=== PATIENT | female | born 1990 | race Caucasian/White ===

== ENCOUNTER 2021-10-25 16:37 | Outpatient (CLI) | payer OTHER, SELFPAY | END 2021-10-25 16:38 | disposition home or self-care (01) | LOC: LKVREF 10-29 16:01 | PROVIDERS: PCP Registered Nurse; Visit Provider Registered Nurse | DX: R10.9 Unspecified abdominal pain (principal); R30.0 Dysuria | CPT/HCPCS: 87086 ==

== ENCOUNTER 2021-10-29 10:35 | Outpatient (CLI) | payer OTHER, SELFPAY | END 2021-10-29 10:36 | disposition home or self-care (01) | PROVIDERS: PCP Registered Nurse; Visit Provider Physician Assistant | DX: R10.2 Pelvic and perineal pain (principal) | CPT/HCPCS: 87086 ==

== ENCOUNTER 2021-10-29 11:14 | Outpatient (CLI) | payer OTHER, SELFPAY ==
[2021-10-29 23:12] LABS: Chlamydia DNA Amplified* NOT DETECTED (No Detected); GC DNA Amplified* NOT DETECTED (No Detected)
== END 2021-10-29 11:15 | disposition home or self-care (01) ==
PROVIDERS: PCP Registered Nurse; Visit Provider Physician Assistant
DX: R10.2 Pelvic and perineal pain (principal); Z12.4 Encounter for screening for malignant neoplasm of cervix
CPT/HCPCS: 87491; 87591; 87624

== ENCOUNTER 2021-10-30 07:18 | Outpatient (CLI) | payer OTHER, SELFPAY ==
--- NOTE | 2021-10-30 07:15 | CRLHL7_ITS ---
For Patients: As a result of the Century Cures Act, medical imaging exams and procedure reports are released immediately into your electronic medical record. You may view this report before your referring provider. If you have questions, please contact your health care provider. INDICATION: Pelvic pain TECHNIQUE: Ultrasound pelvis transabdominal and transvaginal for better assessment or to better visualize the endometrium. Real time sonographic images with Spectral and color Doppler imaging of the ovaries were obtained. COMPARISON: None FINDINGS: Uterus: 6.5 centimeter x 3.0 centimeter x 3.7 centimeter. Normal echotexture of the myometrium. No masses. Endometrium: Transvaginal imaging was performed to better evaluate the endometrium. 6 millimeters in thickness. No sign of endometrial mass or fluid. Right ovary: 5.6 centimeter x 3.4 centimeter x 3.5 centimeter. No ovarian or adnexal masses. 5.0 centimeter right ovarian cyst. Normal arterial and venous blood flow. Left ovary: 3.1 centimeter x 1.7 centimeter x 1.8 centimeter. No ovarian or adnexal masses. Normal arterial and venous blood flow. Cul-de-sac: No significant free fluid. IMPRESSION: 5.0 centimeter simple right ovarian cyst. No evidence for ovarian torsion. Dictated by Joaquin Serna MD @ 10/30/2021 8:35:28 AM (Electronically Signed)
== END 2021-10-30 07:19 | disposition home or self-care (01) ==
PROVIDERS: PCP Registered Nurse; Visit Provider Physician Assistant
DX: R10.2 Pelvic and perineal pain (principal); N83.201 Unspecified ovarian cyst, right side
CPT/HCPCS: 76830; 76856; 93976